=== PATIENT | male | born 1960 | race Hispanic/Latino ===

== ENCOUNTER 2017-06-16 11:49 | Day surgery (SDC) | payer OTHER ==
[2017-06-16] MEDS ORDERED: Iodixanol 320 MG/ML 100 ML BOTTLE IV ONE (14:51)
--- NOTE | 2017-06-17 00:52 | CATH ---
APPROVED REPORT HISTORY The patient is a 56 year-old male with a history of : tobacco history() , hypertension, dyslipidemia, family history of premature CAD. INDICATION The indication(s) include : positive stress test, palpitations, atypical chest pain (>48 hrs to = 72 hrs), murmur, chest pain, dyspnea. CASE TECHNIQUE The patient was brought electively to the Cardiac Catheterization Laboratory in a fasting state and was prepped and draped in a sterile manner. The right femoral groin was infiltrated with 2% Lidocaine subcutaneous anesthesia. A sheath was inserted into the right femoral artery without difficulty. Coronary angiography was performed using coronary diagnostic catheters. The left coronary system was accessed and visualized with a Diagnostic catheter. The right coronary system was accessed and visualized with a Diagnostic catheter. The left ventricle was accessed and visualized with a Diagnostic catheter. Left ventricular/Aortic Valve gradient assessed on pullback. Left ventriculogram was performed in [place] projection. An aortogram of the femoral artery was performed. Pre-demployment femoral angiogram was performed . Closure device was deployed with a 6 Fr Angioseal without any complications. The patient tolerated the procedure well and there were no complications associated with the procedure. Vessel Analysis The patient's coronary anatomy is right dominant. The left main coronary artery is a medium size vessel without stenosis. The left main bifurcates to the left anterior descending and circumflex. The left anterior descending artery is a medium size vessel without stenosis. The first diagonal branch is a medium size vessel without stenosis. The second diagonal branch is a medium size vessel without stenosis. The circumflex artery is a small size vessel without stenosis. The first obtuse marginal branch is a small size vessel without stenosis. The right coronary artery is a large size vessel without stenosis. The right posterior descending artery is a large size vessel without stenosis. The right posterolateral branch is a large size vessel without stenosis. Left Ventricle The left ventricle is NORMAL in size with NORMAL contractility. The left ventricular ejection fraction is estimated to be 55-60%. The left ventricular end diastolic pressure is 14 mmHg. There was no gradient across the aortic valve upon pullback. Conclusion NML LVEF NO SIG OBSTRUCTIVE CAD RIGHT DOMINANT SYSTEM Recommendations Smoking Cessation Aggressive Medical Therapy Weight Loss Reduction ProgramMedical Therapy
== END 2017-06-16 20:22 | disposition short-term general hospital (02) ==
LOC: C.CATHLAB 11:49
PROVIDERS: ATTEND Internal Medicine Cardiovascular Disease
DX: R07.89 Other chest pain (principal); Z87.891 Personal history of nicotine dependence; Z82.49 Family history of ischemic heart disease and other diseases of the circulatory system; I10 Essential (primary) hypertension; E78.5 Hyperlipidemia, unspecified; R01.1 Cardiac murmur, unspecified; R00.2 Palpitations
CPT/HCPCS: 93458; J1644; Q9967